=== PATIENT | female | born 1995 | race Caucasian/White ===

== ENCOUNTER → 2019-01-16 | Outpatient (CLI) | payer MEDICARE | END | disposition home or self-care (01) | LOC: RAH 11:28 | PROVIDERS: ATTEND Family Medicine | DX: R22.1 Localized swelling, mass and lump, neck (principal) | CPT/HCPCS: 70490 ==

== ENCOUNTER 2019-06-13 22:25 | Emergency (ER) | payer MEDICARE ==
[2019-06-13 22:54] LABS: APPEARANCE,URINE Clear (CLEAR); BILIRUBIN,URINE Negative (NEGATIVE); COLOR,URINE Yellow (YELLOW); GLUCOSE, URINE (UA) Negative (NEGATIVE); KETONES,URINE Negative (NEGATIVE); LEUKOCYTE ESTERASE ,URINE Trace (NEGATIVE); NITRATE,URINE Negative (NEGATIVE); OCCULT BLOOD,URINE Negative (NEGATIVE); PH,URINE 7.5 (5.0-8.0); PROTEIN,URINE Negative (NEGATIVE); UROBILINOGEN,URINE 0.2 mg/dL (0.2-1.0)
[2019-06-13 22:56] LABS: HCG,QUAL RESULT NEGATIVE (NEGATIVE)
[2019-06-13 23:07] LABS: BACTERIA,URINE None Seen /HPF (None Seen); RBC,URINE None Seen /HPF (0-1); SQUAMOUS EPITHELIAL CELL,UR Rare /HPF (0-2); WBC,URINE 0-1 /HPF (0-1)
[2019-06-13 23:47] LABS: BASOPHILS % (AUTO) 0.7 % (0.0-5.0); EOSINOPHILS % (AUTO) 7.4 % (0.0-8.0); HEMATOCRIT 37.4 % (36-48); LYMPHOCYTES % (AUTO) 30.8 % (21.0-51.0); MEAN CORPUSCULAR HGB CONC 33.2 g/dL (32.0-36.0); MEAN CORPUSCULAR VOLUME 75.3 fL (79-99); NEUTROPHILS % (AUTO) 50.1 % (40.0-77.0); PLATELET COUNT (AUTO) 399 K/uL (130-400); RED BLOOD CELL COUNT(AUTO) 4.96 MIL/uL (4.00-5.50); RED CELL DISTRIBUTION WIDTH 15.6 % (11.0-15.5); WHITE BLOOD COUNT (AUTO) 13.9 K/uL (4.8-10.8)
[2019-06-13 23:55] LABS: CREATININE 0.7 mg/dL (0.5-1.5); POTASSIUM 4.2 mmol/L (3.5-5.1)
[2019-06-14] MEDS ORDERED: KETOROLAC TROMETHAMINE 30MG/ML ONE (01:04)
== END 2019-06-14 04:46 | disposition home or self-care (01) ==
LOC: EDH 22:25
DX: N83.292 Other ovarian cyst, left side (principal); E66.01 Morbid (severe) obesity due to excess calories; E78.5 Hyperlipidemia, unspecified; E03.9 Hypothyroidism, unspecified; Z79.899 Other long term (current) drug therapy
CPT/HCPCS: 36415; 74176; 76830; 80048; 81001; 81025; 83690; 85025; 96374; 99285; J1885

== ENCOUNTER 2020-05-16 18:57 | Emergency (ER) | payer MEDICARE ==
[2020-05-16] MEDS ORDERED: TRAMADOL HCL 50 MG TABLET ONE (19:23)
== END 2020-05-16 20:19 | disposition home or self-care (01) ==
LOC: EDH 18:57
DX: S93.692A Other sprain of left foot, initial encounter (principal); E78.5 Hyperlipidemia, unspecified; E03.9 Hypothyroidism, unspecified; Z72.0 Tobacco use; W01.0XXA Fall on same level from slipping, tripping and stumbling without subsequent striking against object, initial encounter; Y93.89 Activity, other specified; Y92.89 Other specified places as the place of occurrence of the external cause; Y99.8 Other external cause status
CPT/HCPCS: 29515; 73610; 73630

== ENCOUNTER 2020-09-15 07:44 | Emergency (ER) | payer OTHER, MEDICARE ==
[2020-09-15] MEDS ORDERED: ACETAMINOPHEN EXTRA STRENGTH 500 MG TABLET ONE (08:22)
[2020-09-15] MEDS ORDERED: CIPROFLOXACIN HCL 0.2%/HYDROCORT 1% 10 ML OTIC SUSP ONE (08:22)
[2020-09-15] MEDS ORDERED: AZITHROMYCIN 250 MG TABLET PO ONE (08:22)
== END 2020-09-15 09:00 | disposition home or self-care (01) ==
LOC: EDH 07:44
DX: H65.192 Other acute nonsuppurative otitis media, left ear (principal); H60.92 Unspecified otitis externa, left ear; E03.9 Hypothyroidism, unspecified; E78.5 Hyperlipidemia, unspecified; Z72.0 Tobacco use

== ENCOUNTER 2021-05-29 01:09 | Observation (INO) | payer OTHER, MEDICARE ==
[~2021-05-29] VITALS: Ht 162.6 cm; Wt 155.0 kg
[2021-05-29 02:16] LABS: BASOPHILS % (AUTO) 0.7 % (0.0-5.0); EOSINOPHILS % (AUTO) 8.3 % (0.0-8.0); HEMATOCRIT 35.3 % (36-48); LYMPHOCYTES % (AUTO) 30.6 % (21.0-51.0); MEAN CORPUSCULAR HEMOGLOBIN 25.3 pg (27.0-33.0); MONOCYTES % (AUTO) 9.7 % (3.0-13.0); NEUTROPHILS % (AUTO) 50.2 % (40.0-77.0); PLATELET COUNT (AUTO) 395 K/uL (130-400); RED BLOOD CELL COUNT(AUTO) 4.47 MIL/uL (4.00-5.50); RED CELL DISTRIBUTION WIDTH 14.7 % (11.0-15.5); WHITE BLOOD COUNT (AUTO) 16.7 K/uL (4.8-10.8)
[2021-05-29 02:17] LABS: APPEARANCE,URINE Clear (CLEAR); BILIRUBIN,URINE Negative (NEGATIVE); COLOR,URINE Yellow (YELLOW); GLUCOSE, URINE (UA) Negative (NEGATIVE); KETONES,URINE Negative (NEGATIVE); LEUKOCYTE ESTERASE ,URINE Negative (NEGATIVE); NITRATE,URINE Negative (NEGATIVE); OCCULT BLOOD,URINE Negative (NEGATIVE); PH,URINE 6.5 (5.0-8.0); PROTEIN,URINE Negative (NEGATIVE)
[2021-05-29 02:30] LABS: CREATININE 0.7 mg/dL (0.5-1.5); POTASSIUM 3.8 mmol/L (3.5-5.1)
[2021-05-29 02:35] LABS: ALBUMIN 3.1 g/dL (3.5-5.0); BILIRUBIN,TOTAL 0.2 mg/dL (0.2-1.0); TOTAL PROTEIN, SERUM 7.5 g/dL (6.0-8.3)
[2021-05-29] MEDS ORDERED: IOHEXOL 350 MG/ML 100ML INFUS..BTL IV ONE (03:15)
[2021-05-29] MEDS ORDERED: ONDANSETRON 4MG INJ ONE ×2 (04:04→06:16)
[2021-05-29] MEDS ORDERED: ONDANSETRON 4MG INJ IVP ONE ×2 (04:30→06:30)
[2021-05-29] MEDS ORDERED: 0.9%NACL 100ML 100 ML ONE (06:18)
[2021-05-29] MEDS: PROMETHAZINE HCL 25 MG/ML 1ML AMPULE IM SCH (06:28)
[2021-05-29] MEDS ORDERED: PROMETHAZINE HCL 25 MG/ML 1ML AMPULE IM PRN (07:00)
[2021-05-29] MEDS ORDERED: GLUCAGON 1MG KIT 1 MG ML IM PRN (07:00)
[2021-05-29] MEDS ORDERED: DEXTROSE 50%-WATER 50 ML DISP.SYRIN IV PRN (07:00)
[2021-05-29] MEDS ORDERED: ZOLPIDEM TARTRATE 5 MG TAB PO PRN (07:00)
[2021-05-29] MEDS ORDERED: NITROGLYCERIN 0.4 MG SL TAB SL PRN (07:00)
[2021-05-29] MEDS ORDERED: HYDROMORPHONE 1 MG INJ IV PRN (07:00)
[2021-05-29] MEDS ORDERED: MAG/ALUM/SIMETH 30 ML UDCUP PO PRN (07:00)
[2021-05-29] MEDS ORDERED: ONDANSETRON 4MG INJ IV PRN (07:00)
[2021-05-29] MEDS ORDERED: ACETAMINOPHEN 325 MG TAB PO PRN ×2 (07:00)
[2021-05-29] MEDS ORDERED: LACTULOSE 20 GM/30 ML UDCUP PO PRN (07:00)
[2021-05-29] MEDS ORDERED: LABETALOL 20MG SYG IV PRN (07:00)
[2021-05-29] MEDS: INSULIN HUMULIN R 100 UNIT/ML 3ML SQ SCH ×4 (07:30→21:00)
[2021-05-29] MEDS: ENOXAPARIN SODIUM 40 MG/0.4 ML SYRINGE SQ SCH (08:24)
[2021-05-29] MEDS ORDERED: FAMOTIDINE 20MG VIAL IV SCH (09:00)
[2021-05-29] MEDS ORDERED: 0.9%NACL 50ML 50 ML IV ONE (09:58)
[2021-05-29] MEDS ORDERED: ZOSYN 3.375GM+NS 50ML 3.38 GM in 0.9%NACL 50ML 50 ML IV SCH (10:00)
[2021-05-29] MEDS: LACTATED RINGERS 1000ML 1,000 ML IV SCH (10:05)
[2021-05-29] MEDS: ZOSYN 3.375GM+NS 50ML 50 ML IV SCH ×2 (10:05→17:33)
[2021-05-29 16:14] VITALS: BP 116/43
[2021-05-29 20:00] VITALS: BP 111/52
[2021-05-29] MEDS ORDERED: ATORVASTATIN 10 MG TABLET PO SCH (21:00)
[2021-05-29] MEDS: GUAIFENESIN-DM 200/20 MG 10 ML PO PRN (21:41)
[2021-05-29 23:16] VITALS: BP 102/50
[2021-05-30] MEDS: GUAIFENESIN-DM 200/20 MG 10 ML PO PRN ×2 (01:56→12:40)
[2021-05-30] MEDS: ZOSYN 3.375GM+NS 50ML 50 ML IV SCH ×2 (01:57→08:43)
[2021-05-30] MEDS: LACTATED RINGERS 1000ML 1,000 ML IV SCH (02:24)
[2021-05-30 04:19] VITALS: BP 100/53
[2021-05-30 04:26] LABS: HEMATOCRIT 33.2 % (36-48); MEAN CORPUSCULAR HEMOGLOBIN 24.9 pg (27.0-33.0); MEAN CORPUSCULAR HGB CONC 31.3 g/dL (32.0-36.0); MEAN CORPUSCULAR VOLUME 79.4 fL (79-99); PLATELET COUNT (AUTO) 340 K/uL (130-400); RED BLOOD CELL COUNT(AUTO) 4.18 MIL/uL (4.00-5.50); RED CELL DISTRIBUTION WIDTH 14.6 % (11.0-15.5); WHITE BLOOD COUNT (AUTO) 11.9 K/uL (4.8-10.8)
[2021-05-30 04:39] LABS: CREATININE 0.7 mg/dL (0.5-1.5); POTASSIUM 3.8 mmol/L (3.5-5.1)
[2021-05-30] MEDS: PROMETHAZINE HCL 25 MG/ML 1ML AMPULE IM SCH (06:30)
[2021-05-30] MEDS ORDERED: LEVOTHYROXINE 112 MCG TABLET PO SCH (06:50)
[2021-05-30 07:30] VITALS: BP 93/45
[2021-05-30] MEDS: INSULIN HUMULIN R 100 UNIT/ML 3ML SQ SCH (07:30)
[2021-05-30] MEDS: METOCLOPRAMIDE 10 MG/2 ML VIAL IVP SCH ×2 (08:42→12:41)
[2021-05-30] MEDS: ENOXAPARIN SODIUM 40 MG/0.4 ML SYRINGE SQ SCH (08:42)
[2021-05-30] MEDS: FAMOTIDINE 20MG VIAL IV SCH ×2 (08:42→09:00)
[2021-05-30] MEDS ORDERED: BISACODYL 5 MG TABLET.DR PO SCH (10:00)
[2021-05-30 11:00] VITALS: BP 134/64
== END 2021-05-30 18:00 | disposition home or self-care (01) ==
LOC: EDH 01:09 → EDHIP 01:10 → UNDOADMOB 01:10 → EDHIP 06:22 → 3DH 14:29
PROVIDERS: ADMIT Internal Medicine Critical Care Medicine; ATTEND Internal Medicine Critical Care Medicine
DX: R10.9 Unspecified abdominal pain (principal); R11.2 Nausea with vomiting, unspecified; D72.829 Elevated white blood cell count, unspecified; J45.909 Unspecified asthma, uncomplicated; E03.9 Hypothyroidism, unspecified; E78.00 Pure hypercholesterolemia, unspecified; E28.2 Polycystic ovarian syndrome; K76.0 Fatty (change of) liver, not elsewhere classified; E66.01 Morbid (severe) obesity due to excess calories; F17.200 Nicotine dependence, unspecified, uncomplicated; Z68.43 Body mass index [BMI] 50.0-59.9, adult; Z79.899 Other long term (current) drug therapy
CPT/HCPCS: 36415 ×2; 71045; 74177; 76705; 78227; 80048; 80053; 81003; 81025; 82948 ×4; 83690; 84145; 84443; 85025; 85027; 96361; 96365; 96366 ×2; 96372 ×2; 96375 ×2; 96376; 99285; A9537; G0378 ×35; J1650 ×2; J2405; J2543 ×4; J2550; J2765 ×2; J3490 ×2; J7120 ×2; Q9967

== ENCOUNTER 2022-01-20 00:32 | Emergency (ER) | payer OTHER, MEDICARE ==
[~2022-01-20] VITALS: Ht 162.6 cm; Wt 153.3 kg
[2022-01-20 01:03] VITALS: BP 131/70
== END 2022-01-20 01:18 | disposition home or self-care (01) ==
LOC: EDH 00:32
DX: H61.22 Impacted cerumen, left ear (principal); E03.9 Hypothyroidism, unspecified; E78.00 Pure hypercholesterolemia, unspecified; F17.200 Nicotine dependence, unspecified, uncomplicated
CPT/HCPCS: 99281

== ENCOUNTER 2023-07-18 07:12 | Day surgery (SDC) | payer OTHER, MEDICARE ==
[2023-07-18] VITALS (11 sets, daily range): BP systolic 109–126; BP diastolic 58–74; PULSE 71–98; RESP 15–20
[~2023-07-18] VITALS: Ht 162.6 cm; Wt 163.7 kg
[~2023-07-18 07:12] MED LIST: ALBU90AE2 IH; ASPI1TAB7 PO; ATOR10TA69 PO; BUPR100T13 PO; LEVO112C4 PO; METF-527 PO; MULT-1367 PO; PRAZ2CAP2 PO; SEMA0.258 SQ; TRAZ-187 PO
[2023-07-18] MEDS ORDERED: 0.9%NACL 1000ML 1,000 ML IV ONE (09:02)
[2023-07-18] MEDS ORDERED: IPRATROPIUM/ALBUTEROL SULFATE 3 ML SOLUTION IH STA (09:17)
[2023-07-18] MEDS ORDERED: MIDAZOLAM HCL 1 MG/ML 2ML VIAL ONE (10:57)
[2023-07-18] MEDS ORDERED: PROPOFOL 10 MG/ML 20ML VIAL IV ONE ×2 (10:57→10:58)
[2023-07-18] MEDS ORDERED: KETAMINE 50MG/ML SYRINGE 50 MG/ML DISP.SYRIN ONE (10:58)
== END 2023-07-18 12:15 | disposition home or self-care (01) ==
LOC: DAH 07:12 → ENDO 07:12
PROVIDERS: ATTEND Internal Medicine Gastroenterology
DX: R11.0 Nausea (principal); K29.50 Unspecified chronic gastritis without bleeding; K21.00 Gastro-esophageal reflux disease with esophagitis, without bleeding; I10 Essential (primary) hypertension; E78.5 Hyperlipidemia, unspecified; E03.9 Hypothyroidism, unspecified; F31.9 Bipolar disorder, unspecified; F41.9 Anxiety disorder, unspecified; K76.0 Fatty (change of) liver, not elsewhere classified; E66.09 Other obesity due to excess calories; Z79.01 Long term (current) use of anticoagulants; Z79.899 Other long term (current) drug therapy; Z90.89 Acquired absence of other organs; Z68.44 Body mass index [BMI] 60.0-69.9, adult
CPT/HCPCS: 82948 ×2; 81025; 43239; 94640; J7030 ×2; J2250; J2704 ×2; J3490; A4620; A4215; A4223; A7002; A4222; A4221; A4663; A4216; A4606

== ENCOUNTER 2025-06-15 22:34 | Emergency (ER) | payer OTHER, MEDICAID ==
[~2025-06-15] VITALS: Ht 162.6 cm; Wt 171.5 kg
[~2025-06-15 22:34] MED LIST changes: -ALBU90AE2 IH; +ALBU90AE3 IH; -LEVO112C4 PO; +LEVO112C5 PO
[2025-06-15 23:14] LABS: IMMATURE GRANULOCYTE ABSOLUTE 0.09 K/uL (0-1); NUCLEATED RED BLOOD CELLS 0.0 % (0.0-0.19); PLATELET COUNT (AUTO) 373 K/uL (130-400); RED BLOOD CELL COUNT(AUTO) 5.21 MIL/uL (4.00-5.50); RED CELL DISTRIBUTION WIDTH 14.5 % (11.0-15.5); WHITE BLOOD COUNT (AUTO) 16.9 K/uL (4.8-10.8)
--- NOTE | 2025-06-15 23:16 | ERN ---
ED Note History of Present Illness Stated Complaint: C/O BACK PAIN Chief Complaint: Back Pain-No Injury Time Seen by MD: 22:38 Time Seen by Midlevel: 22:38 Dictation: The patient is a 30-year-old female with a history of hypothyroidism, fatty liver who presents to the emergency department with complaints of two weeks of right flank pain. Patient denies any trauma, denies any urinary or fecal incontinence, denies any lower extremity numbness, denies any nausea or vomiting. Denies any fevers or urinary discomfort Allergies: Coded Allergies: No Known Drug Allergies (Unverified Allergy, Unknown, 06/14/19) Home Meds Active Scripts Nitrofurantoin Monohyd/M-Cryst (Macrobid 100 mg Capsule) 100 Mg Capsule, 1 CAP PO BID for 5 Days, #10 CAP 0 Refills Prov:[facility] 06/16/25 Meloxicam (Meloxicam) 15 Mg Tablet, 1 TAB PO DAILY for 15 Days, #15 TAB 0 Refills Prov:[facility] 06/16/25 Reported Medications Semaglutide (Ozempic) 0.25 Mg/0.368 Ml Pen.injctr, 0.25 MG SQ QWEEK 07/17/23 Albuterol Sulfate (Proair Digihaler) 90 Mcg Aer.pw.bas, 90 MCG IH Q4HPRN PRN for SHORTNESS OF BREATH/WHEEZING 07/17/23 Multivitamin (Multivitamin) 1 Each Tablet, 1 EACH PO DAILY, TAB 07/17/23 Aspirin/Acetaminophen/Caffeine (Excedrin Migraine Caplet) 250 Mg-250 Mg-65 Mg Tablet, 1 EACH PO DAILY PRN for migraines, TAB 07/17/23 Atorvastatin Calcium (Atorvastatin Calcium) 10 Mg Tablet, 10 MG PO HS, TAB 07/17/23 Trazodone HCl (Trazodone HCl) 100 Mg Tablet, 200 MG PO HS, TAB 07/17/23 Prazosin HCl (Prazosin HCl) 2 Mg Capsule, 2 MG PO HS, CAP 07/17/23 Bupropion HCl (Bupropion HCl) 100 Mg Tablet, 100 MG PO DAILY, TAB 07/17/23 Metformin HCl (Metformin HCl ER) 1,000 Mg Tab.er.24, 2000 MG PO HS 07/17/23 Levothyroxine Sodium (Levothyroxine) 112 Mcg Capsule, 112 MCG PO ACBKFST, CAP 07/17/23 Past Medical History Past Medical History: High Cholesterol, Hypothyroid Surgical History: Tonsillectomy Surgical History Other: NECK SURGERY, WISDOM TEETH REMOVED, OVARIAN CYST DRAINED Social History: Smokers, Lives with family History: Not Applicable RN Note Reviewed/Agreed w/PFSH: Yes Review of System Dictation Constitutional: Negative for fever,chills, and weight loss Eyes: Negative for injury, pain,redness, and discharge ENT: Negative for injury,pain or swelling Cardiovascular: Negative for chest pain, palpitations, and edema Respiratory: Negative for shortness of breath, cough, and wheezing, Abdomen/GI: Negative for abdominal pain, nausea, vomiting, diarrhea, and constipation Back: Negative for injury and pain : Positive for right flank pain MS/Extremity: Negative for injury and deformity Skin: Negative for rash, and discoloration Neuro: Negative for headache, weakness, numbness, tingling, and seizure Psych: Negative for suicide ideation, homicidal ideation, and hallucinations Initial Vital Sign VS Vital Signs Date Time Temp Pulse Resp B/P (MAP) Pulse Ox O2 Delivery O2 Flow Rate FiO2 06/15/25 22:38 98.4 84 20 106/70 99 Room Air 06/15/25 23:22 0 21 Physical Exam Dictation Vital Signs reviewed General Appearance: Alert, oriented x 3, no acute distress, well developed, nourished. Head and Face: non-traumatic. Eyes: PERRL, pink conjunctivas, eyelid no trauma, anterior chamber with arcus senilis. Ears: Pinnas intact and no signs of trauma or erythema ear canals clear and no discharge TM no erythema Nose: No discharge, no bleeding. Oropharynx: Mouth normal, tongue pink. pharynx clear,no erythema, tonsils no exudates, no abscesses noted, mucous membrane moist Neck: Supple, non-tender, no thyromegaly, no masses, no JVD, no bruits Breast:Deferred Chest:No tenderness, no crepitus, no paradoxical movement, no retractions Lungs:Clear, well-ventilated, symmetric, no rales, no wheezing, no rhonchi, no stridor, good breath sounds bilaterally Heart: Regular rate, regular rhythm, no murmur, no gallops Vascular: no peripheral edema, Abdomen: Soft, positive bowel sounds, nondistended, no guarding, nontender, no rebound, no masses no hepatomegaly, no splenomegaly, no Nam's sign, no hernias. Rectal: Deferred Genital: Deferred Neurological: Normal speech, motor function intact, sensory function intact Musculoskeletal: Neck nontender, full range of motion, back nontender, full range of motion, Extremities: nontender, full range of motion Skin: Color pink, dry, no turgor, no rash, no lacerations, no abrasions, no contusions. Lymphatic: Deferred Results (Laboratory/Radiology) Laboratory/Radiology Laboratory Tests Test 06/15/25 23:04 06/15/25 23:20 06/16/25 00:39 White Blood Count 16.9 K/uL (4.8-10.8) H Red Blood Count 5.21 MIL/uL (4.00-5.50) Hemoglobin 14.2 g/dL (12.0-16.0) Hematocrit 42.6 % (36-48) Mean Corpuscular Volume 81.8 fL (79-99) Mean Corpuscular Hemoglobin 27.3 pg (27.0-33.0) Mean Corpuscular Hemoglobin Concent 33.3 g/dL (32.0-36.0) Red Cell Distribution Width 14.5 % (11.0-15.5) Platelet Count 373 K/uL (130-400) Mean Platelet Volume 9.9 fL (7.5-10.5) Immature Granulocyte % (Auto) 0.5 % (0-1) Neutrophils (%) (Auto) 55.0 % (40.0-77.0) Lymphocytes (%) (Auto) 31.7 % (21.0-51.0) Monocytes (%) (Auto) 8.6 % (3.0-13.0) Eosinophils (%) (Auto) 3.6 % (0.0-8.0) Basophils (%) (Auto) 0.6 % (0.0-5.0) Neutrophils # (Auto) 9.3 K/uL (1.8-7.7) H Lymphocytes # (Auto) 5.4 K/uL (1.0-4.8) H Monocytes # (Auto) 1.5 K/uL (0.1-1.0) H Eosinophils # (Auto) 0.61 K/uL (0.00-0.70) Basophils # (Auto) 0.10 K/uL (0.00-0.20) Absolute Immature Granulocyte (auto 0.09 K/uL (0-1) Segmented Neutrophils % 58 % (40-70) Lymphocytes % (Manual) 32 % (22-44) Monocytes % (Manual) 7 % (2-9) Eosinophils % (Manual) 2 % (1-6) Basophils % (Manual) 1 % (0-2) Nucleated Red Blood Cells 0.0 % (0.0-0.19) Differential Comment MANUAL DIFFERENTIAL White Cell Morphology Comment REACTIVE LYMPHS 1+ Platelet Morphology Comment See comments Red Blood Cell Morphology ANISO 1+ Sodium Level 141 mmol/L (136-145) Potassium Level 3.9 mmol/L (3.5-5.1) Chloride Level 104 mmol/L (101-111) Carbon Dioxide Level 26 mmol/L (21-32) Blood Urea Nitrogen 12 mg/dL (7-18) Creatinine 0.9 mg/dL (0.5-1.0) Glomerular Filtration Rate Calc 89 mL/min (>90) Random Glucose 144 mg/dL (70-105) H Total Calcium 8.6 mg/dL (8.5-10.1) Serum Test, Qualitative NEGATIVE (NEGATIVE) Urine Color YELLOW (YELLOW) Urine Appearance CLOUDY (CLEAR) H Urine pH 6.5 (5.0-8.0) Urine Specific [place] 1.018 (1.001-1.031) Urine Protein NEGATIVE mg/dL (NEGATIVE) Urine Glucose (UA) NEGATIVE mg/dL (NEGATIVE) Urine Ketones NEGATIVE mg/dL (NEGATIVE) Urine Occult Blood NEGATIVE (NEGATIVE) Urine Nitrate NEGATIVE (NEGATIVE) Urine Bilirubin NEGATIVE mg/dL (NEGATIVE) Urine Urobilinogen 0.2 mg/dL (0.2-1.0) Urine Leukocyte Esterase 75 José Miguel/uL (NEGATIVE) H Urine RBC 2-5 /HPF (0-1) H Urine WBC 2-5 /HPF (0-1) H Urine Squamous Epithelial Cells MANY /HPF (0-2) Urine Other Crystals (Auto) 2 /HPF (None Seen) Urine Bacteria RARE /HPF (None Seen) Lactic Acid Level 2.3 mmol/L (0.8-2.5) REASON: right flank pain ORDERING PHYSICIAN: ASTRID MARTE [employer] PROCEDURE: ABD PEL WO - CT ABDOMEN/PELVIS W/O CONTRAST EXAM: CT Abdomen and Pelvis with IV contrast CLINICAL HISTORY: Right flank pain. TECHNIQUE: Postcontrast thin collimated axial CT images of the abdomen and pelvis were obtained with sagittal and coronal reformatted images also submitted. CT scan is done according to ALARA (As Low As Reasonably Achievable). COMPARISON: None. FINDINGS: The included lungs are clear. Mild to moderate hepatomegaly and hepatic steatosis. No focal abnormality within the gallbladder, pancreas, spleen, adrenals, or kidneys. No renal, ureteral, or bladder calculus. No hydronephrosis. The urinary bladder is suboptimally distended and grossly unremarkable. 4.5 x 4.8 cm cystic structure in the left ovary. The uterus and right ovary appears small in size, please correlate clinically for prior surgery. No obvious bowel wall thickening, dilatation, or obstruction. Unremarkable appendix. Limited evaluation of the abdominal vessels due to the lack of intravenous contrast. No abdominal aortic aneurysm is evident. No pathological lymphadenopathy in the abdomen or pelvis. No ascites or pneumoperitoneum. No acute bony abnormality is evident. IMPRESSIONS: 4.5 x 4.8 cm cystic structure in the left ovary. Recommend ultrasound of the pelvis for further evaluation. The uterus and right ovary appears small in size, please correlate clinically for prior surgery. No renal, ureteral, or bladder calculus. No hydronephrosis. Mild to moderate hepatomegaly and hepatic steatosis. /[facility] REASON: left cyst ORDERING PHYSICIAN: ASTRID MARTE [employer] PROCEDURE: PELVCOMP - US PELVIC NON-OB COMP ADDENDUM REPORT ADDENDUM: TECHNIQUE: Transabdominal pelvic ultrasound (complete) with image documentation. /[facility] EXAM: US Pelvis, Complete. CLINICAL HISTORY: Left cyst TECHNIQUE: Transvaginal and transabdominal pelvic ultrasound (complete) with image documentation. COMPARISON: None provided. FINDINGS: The uterus measures 5.7 x 2.1 x 2.7 cm. The endometrial thickness measures up to 1.5 mm. The right ovary is not well-visualized. No adnexal lesion is evident on the right side. The left ovary measures 4.8 x 3.2 x 9.7 cm. There is a 3.1 x 3.6 cm cyst in the left ovary. Normal flow in the left ovary. No free fluid in the cul-de-sac. Limited evaluation due to the large body habitus and increased intestinal air. IMPRESSION: Simple ovarian cyst on the left side. No acute process or ovarian torsion is evident. /[facility] Labs Reviewed?: Yes ED Course ED Course Orders Procedure Category Date Status Time Cbc With Differential LAB 06/15/25 Complete 22:42 Urinalysis Profile LAB 06/15/25 Complete 22:42 Basic Metabolic Panel LAB 06/15/25 Complete 22:42 Testing, LAB 06/15/25 Complete Serum Hcg 22:42 Acetaminophen 500mg PHA 06/15/25 Complete Tab (Tylenol 500mg T 23:00 Manual Differential LAB 06/15/25 Complete 23:04 Ct Abdomen/Pelvis W/O CT 06/15/25 Resulted Contrast 23:33 Culture Urine EILEEN 06/15/25 In Process 23:45 Blood Cult EILEEN 06/16/25 In Process 00:13 Lactic Acid LAB 06/16/25 Complete 00:13 Ceftriaxone 1g Vial PHA 06/16/25 Complete (Rocephine 1g Inj) 00:30 Ketorolac PHA 06/16/25 Complete Tromethamine 30mg/Ml 00:30 Us Pelvic Non-Ob Comp US 06/16/25 Resulted 01:35 Current Medications Medications (Trade) Dose Ordered Sig/Madelyn Route PRN Reason Start Time Stop Time Status Last Admin Dose Admin Acetaminophen (TYLenol 500MG TAB) 1,000 mg ONCE ONCE PO 06/15/25 23:00 06/15/25 23:01 DC 06/15/25 23:21 Ceftriaxone Sodium (ROCEphine 1G INJ) 1 gm ONCE ONCE IVPB 06/16/25 00:30 06/16/25 00:31 DC 06/16/25 00:25 Ketorolac Tromethamine (toRADol) 30 mg ONCE ONCE IVP 06/16/25 00:30 06/16/25 00:31 DC 06/16/25 00:25 Vital Signs Date Time Temp Pulse Resp B/P (MAP) Pulse Ox O2 Delivery O2 Flow Rate FiO2 06/15/25 23:22 98.8 88 18 135/66 98 Room Air* 0 21 06/15/25 22:38 98.4 84 20 106/70 99 Room Air Medical Decision Making MDM The patient is a 30-year-old female with a history of hypothyroidism, fatty liver who presents to the emergency department with complaints of two weeks of right flank pain. Patient denies any trauma, denies any urinary or fecal incontinence, denies any lower extremity numbness, denies any nausea or vomiting. Denies any fevers or urinary discomfort CBC showed leukocytosis. Patient reports that she has a history of leukocytosis and is following up with her doctor. Reports that he has been having problems with that is since she was a teenager. Patient has seen here before for multiple times and has leukocytosis. Patient with no fever no tachycardia. Chemistry showed no electrolyte imbalance, normal renal function, urinalysis positive for leukocyte esterase. Patient we will be treated with the antibiotics. CT abdomen and pelvis showed no acute intra-abdominal pathology. A cystic structure to left ovary. Patient reports improving in pain. Nontoxic appearance, stable vital signs. Agrees to be discharged and follow up with PCP. Differential diagnosis: Kidney stones, muscle spasm, dehydration, acute kidney injury Need for hospitalization: Patient does not meet criteria for hospitalization. There are no social concerns with this patient. DX & DISP Disposition: Discharge Departure Impression: Primary Impression: Low back pain Additional Impressions: UTI (urinary tract infection), Leukocytosis Condition: Stable Scripts Nitrofurantoin Monohyd/M-Cryst (Macrobid 100 mg Capsule) 100 Mg Capsule 1 CAP PO BID for 5 Days, #10 CAP 0 Refills Prov: ASTRID [facility]TE [employer] 06/16/25 Meloxicam (Meloxicam) 15 Mg Tablet 1 TAB PO DAILY for 15 Days, #15 TAB 0 Refills Prov: ASTRID MARTE [employer] 06/16/25 Additional Instructions: Please take your medications as prescribed. Follow up with your primary doctor in 1-2 days. If anything worsens please return to ER. FOLLOW-UP WITH PRIMARY CARE PROVIDER IN 1 TO 2 DAYS. TAKE MEDICATIONS DIRECTED HERE IN THE EMERGENCY ROOM. OKAY TO CONTINUE HOME MEDICATIONS UNLESS OTHERWISE DISCUSSED DURING YOUR VISIT IN THE EMERGENCY ROOM TODAY. RETURN TO YOUR NEAREST EMERGENCY ROOM IF SYMPTOMS WORSEN OR IF THERE IS NO IMPROVEMENT. CALL 911 IF YOU NEED IMMEDIATE ASSISTANCE. TAKE TYLENOL [id number] NEEDED AND IF NO CONTRAINDICATIONS ARE PRESENT. INCREASE ORAL HYDRATION. A WOUND CULTURE OR URINE CULTURE WAS ORDERED HERE IN THE EMERGENCY ROOM DEPARTMENT PLEASE FOLLOW-UP WITH PRIMARY CARE PROVIDER AND ADVISE THEM TO GET REPEAT PORTS FROM OUR FACILITY. IF YOU HAD ANY EDUARDA WRAP/SPLINTS THAT WERE APPLIED HERE, PLEASE DO NOT REMOVE THEM UNTIL YOU SEE YOUR PRIMARY CARE OR SPECIALTY. Referrals: SILVANO MEYER MD (PCP) Time of Disposition: 03:19 I have reviewed the case, and I agree with, Diagnosis and Plan A[facility]ID [facility] Jun 15, 2025 23:16
[2025-06-15 23:22] VITALS: BP 135/66; PULSE 88; RESP 18; TEMP 98.8; O2SAT 98
[2025-06-15 23:24] LABS: CREATININE 0.9 mg/dL (0.5-1.0); GLOMERULAR FILTR. RATE CALC 89.0 mL/min (>90); GLUCOSE,RANDOM 144.0 mg/dL (70-105); SODIUM SERUM 141.0 mmol/L (136-145); UREA NITROGEN, BLOOD 12.0 mg/dL (7-18)
[2025-06-15 23:34] LABS: BASOPHILS % (MANUAL) 1 % (0-2); EOSINOPHILS % (MANUAL) 2 % (1-6); LYMPHOCYTES % (MANUAL) 32 % (22-44); MAN.DIFF COMMENT-IMPRESSION MANUAL DIFFERENTIAL; MONOCYTES % (MANUAL) 7 % (2-9); SEGMENTED NEUTROPHILS % 58 % (40-70)
[2025-06-15 23:36] LABS: WBC MORPHOLOGY REACTIVE LYMPHS 1+
[2025-06-15 23:42] LABS: APPEARANCE,URINE CLOUDY (CLEAR); GLUCOSE, URINE (UA) NEGATIVE (NEGATIVE); LEUKOCYTE ESTERASE ,URINE 75 Leu/uL (NEGATIVE); NITRATE,URINE NEGATIVE (NEGATIVE); OCCULT BLOOD,URINE NEGATIVE (NEGATIVE)
[2025-06-15 23:45] LABS: ADD UA MICROSCOPIC YES
[2025-06-15 23:48] LABS: SQUAMOUS EPITHELIAL CELL,UR MANY /HPF (0-2); UNCLASSIFIED CRYSTAL 2 /HPF (None Seen)
--- NOTE | 2025-06-16 01:31 | HMCIMG ---
EXAM: CT Abdomen and Pelvis with IV contrast CLINICAL HISTORY: Right flank pain. TECHNIQUE: Postcontrast thin collimated axial CT images of the abdomen and pelvis were obtained with sagittal and coronal reformatted images also submitted. CT scan is done according to ALARA (As Low As Reasonably Achievable). COMPARISON: None. FINDINGS: The included lungs are clear. Mild to moderate hepatomegaly and hepatic steatosis. No focal abnormality within the gallbladder, pancreas, spleen, adrenals, or kidneys. No renal, ureteral, or bladder calculus. No hydronephrosis. The urinary bladder is suboptimally distended and grossly unremarkable. 4.5 x 4.8 cm cystic structure in the left ovary. The uterus and right ovary appears small in size, please correlate clinically for prior surgery. No obvious bowel wall thickening, dilatation, or obstruction. Unremarkable appendix. Limited evaluation of the abdominal vessels due to the lack of intravenous contrast. No abdominal aortic aneurysm is evident. No pathological lymphadenopathy in the abdomen or pelvis. No ascites or pneumoperitoneum. No acute bony abnormality is evident. IMPRESSIONS: 4.5 x 4.8 cm cystic structure in the left ovary. Recommend ultrasound of the pelvis for further evaluation. The uterus and right ovary appears small in size, please correlate clinically for prior surgery. No renal, ureteral, or bladder calculus. No hydronephrosis. Mild to moderate hepatomegaly and hepatic steatosis. /[place]
[2025-06-16] MEDS ORDERED: MELO-108 PO (03:20)
[2025-06-16] MEDS ORDERED: NITR100C4 PO (03:20)
--- NOTE | 2025-06-16 03:46 | HMCIMG ---
EXAM: US Pelvis, Complete. CLINICAL HISTORY: Left cyst TECHNIQUE: Transvaginal and transabdominal pelvic ultrasound (complete) with image documentation. COMPARISON: None provided. FINDINGS: The uterus measures 5.7 x 2.1 x 2.7 cm. The endometrial thickness measures up to 1.5 mm. The right ovary is not well-visualized. No adnexal lesion is evident on the right side. The left ovary measures 4.8 x 3.2 x 9.7 cm. There is a 3.1 x 3.6 cm cyst in the left ovary. Normal flow in the left ovary. No free fluid in the cul-de-sac. Limited evaluation due to the large body habitus and increased intestinal air. IMPRESSION: Simple ovarian cyst on the left side. No acute process or ovarian torsion is evident. /[facility]
== END 2025-06-16 04:03 | disposition home or self-care (01) ==
LOC: EDH 22:34
DX: N39.0 Urinary tract infection, site not specified (principal); D72.829 Elevated white blood cell count, unspecified; M54.50 Low back pain, unspecified; E03.9 Hypothyroidism, unspecified; E78.00 Pure hypercholesterolemia, unspecified; F17.200 Nicotine dependence, unspecified, uncomplicated; Z79.1 Long term (current) use of non-steroidal anti-inflammatories (NSAID); Z79.899 Other long term (current) drug therapy; Z90.89 Acquired absence of other organs
CPT/HCPCS: 99285; 74176; 80048; 84703; 85025; 87040 ×2; 87086; 83605; 81001; 36415 ×2; 96374; 76856; 96375; J1885; J0696